=== PATIENT | female | born 1990 | race African-American/Black ===

== ENCOUNTER 2021-04-17 06:11 | Inpatient (IN) ==
[2021-04-17] MEDS ORDERED: PITOCIN ONE (06:41)
[2021-04-17] MEDS ORDERED: D5LR 1L W PITOCIN 10 UNITS/L 10 UNITS/1,000 ML BAG IV ONE (06:42)
[2021-04-17] MEDS ORDERED: D5 1/2 NS 1L W PITOCIN 20 UNITS/L 20 UNITS/1,000 ML BAG IV ONE (06:42)
[2021-04-17] MEDS ORDERED: D5 1/2 NS 1000 ML 1,000 ML IV ONE (06:42)
[2021-04-17] MEDS: D5 1/2 NS 1000 ML 1,000 ML IV SCH ×2 (06:45→20:03)
[2021-04-17] MEDS ORDERED: REGLAN INJ 10 MG VIAL IVP PRN (07:08)
[2021-04-17] MEDS ORDERED: MORPHINE SULFATE INJ 2 MG INJ IVP PRN (07:08)
[2021-04-17] MEDS ORDERED: D5LR 1L W PITOCIN 10 UNITS/L 10 UNITS/1,000 ML BAG IV PRN (07:08)
[2021-04-17] MEDS ORDERED: PHENERGAN INJ 25 MG IM PRN ×2 (07:08→19:47)
[2021-04-17] MEDS ORDERED: DILAUDID INJ IVP PRN (07:08)
[2021-04-17] MEDS ORDERED: PITOCIN IVP ONE (07:08)
[2021-04-17] MEDS ORDERED: STADOL INJ IVP PRN (07:10)
[2021-04-17] MEDS ORDERED: STADOL INJ ONE ×2 (08:39→19:38)
[2021-04-17] MEDS ORDERED: FENTANYL VIAL INJ 100 mcg ONE (08:40)
[2021-04-17] MEDS ORDERED: LR 1000 ML IV 1,000 ML IV ONE (08:40)
[2021-04-17] MEDS ORDERED: NAROPIN EPIDURAL 0.2% 100 ML ONE (08:40)
[2021-04-17] MEDS ORDERED: XYLOCAINE 1 % (PLAIN) ONE (19:05)
[2021-04-17] MEDS ORDERED: MOTRIN TAB 800 MG PO PRN (19:47)
[2021-04-17] MEDS ORDERED: D5 1/2 NS 1000 ML 1,000 ML with PITOCIN 20 UNITS IV SCH ×2 (20:00)
[2021-04-17] MEDS ORDERED: DERMOPLAST PAIN RELIEF SPRAY TOP PRN (20:12)
[2021-04-17] MEDS ORDERED: AMBIEN PO PRN (20:12)
[2021-04-17] MEDS ORDERED: MILK OF MAGNESIA PO PRN (20:12)
[2021-04-18] MEDS: MOTRIN TAB 800 MG PO PRN ×2 (00:15→11:37)
[2021-04-18 05:09] LABS: HEMATOCRIT 34.1 % (36.0-47.0); HEMOGLOBIN 11.5 g/dL (12.0-16.0)
[2021-04-18] MEDS ORDERED: PRENATAL PLUS PO SCH (09:00)
--- NOTE | 2021-04-18 09:05 | NOTE.PROOB ---
progress Note OB- Subjective Data Subjective: No complaints, decreased lochia. Tolerating regular diet. No N/V. Ambulating well. No dysuria. Objective Data Result Diagrams: 04/18/21 04:49 Objective Data: CV= RRR no MRG Lungs=CTA Bilaterally Abd=(+) BS, soft, NTND, Fundus firm/NT/ at { } cm below umbilicus. Ext=no edema, NT, no cords Plan (1) Vaginal delivery: Plan: ready for D/C considering OCP's she will f/u with our office in 2 weeks to start this.
[2021-04-18 20:34] VITALS: BP 136/82
== END 2021-04-18 20:58 | disposition home or self-care (01) | DRG 807 ==
LOC: LD 06:11 → OBS 21:03
PROVIDERS: ADMIT Obstetrics & Gynecology; ATTEND Obstetrics & Gynecology
DX: Z01.812 Encounter for preprocedural laboratory examination; B95.61 Methicillin susceptible Staphylococcus aureus infection as the cause of diseases classified elsewhere; O23.43 Unspecified infection of urinary tract in pregnancy, third trimester; Z01.818 Encounter for other preprocedural examination; O70.1 Second degree perineal laceration during delivery; Z20.822 Contact with and (suspected) exposure to COVID-19; Z3A.39 39 weeks gestation of pregnancy; Z37.0 Single live birth